=== PATIENT | female | born 1975 | race Caucasian/White ===

== ENCOUNTER 2019-08-11 00:16 | Outpatient (CLI) | payer OTHER, SELFPAY ==
[2019-08-11 18:40] LABS: SARS-CoV-2 RNA PCR Negative
== END 2019-08-11 00:17 | disposition home or self-care (01) ==
LOC: ANHCOVIDDT 00:16
PROVIDERS: Visit Provider Urology
DX: Z01.812 Encounter for preprocedural laboratory examination (principal); Z20.828 Contact with and (suspected) exposure to other viral communicable diseases
CPT/HCPCS: 87635; C9803; U0003

== ENCOUNTER 2019-08-12 09:24 | Outpatient (CLI) | payer OTHER, SELFPAY ==
--- NOTE | 2019-08-12 09:28 | ECG_ITS ---
Measurements Intervals [place] Rate: 78 P: 15 HI: 156 QRS: -2 QRSD: 104 T: -3 QT: 349 QTc: 399 Interpretive Statements SINUS RHYTHM VOLTAGE CRITERIA FOR LVH BORDERLINE R WAVE PROGRESSION, ANTERIOR LEADS BORDERLINE T WAVE ABNORMALITY- INFERIOR LEADS BORDERLINE ECG Electronically Signed On 08-12-2019 10:23:33 CDT by Paul Morillo D.O.
== END 2019-08-12 09:25 | disposition home or self-care (01) ==
LOC: ANHSURGERY 09:28
PROVIDERS: PCP Family Medicine; Visit Provider Urology
DX: Z01.810 Encounter for preprocedural cardiovascular examination (principal); I10 Essential (primary) hypertension
CPT/HCPCS: 93005

== ENCOUNTER 2019-08-14 01:26 | Day surgery (SDC) | payer OTHER, SELFPAY ==
[2019-08-07 16:58] VITALS: BMI 43.4
[2019-08-14 07:19] VITALS: BP 124/82; PULSE 90; RESP 18; TEMP 36.4; O2SAT 100
--- NOTE | 2019-08-14 07:30 | WPDHPUPDATE1 ---
History and Physical Update Update Date/Time: 08/14/19 07:30 History and Physical has been reviewed, including an updated exam of the patient. There are NO changes in the patient's condition. Risks, benefits, and alternatives have been discussed and questions answered. Patient agrees to proceed with procedure.
[2019-08-14] MEDS: LACTATED RINGERS 1,000 ML 30 ML IV CONT (07:52)
--- NOTE | 2019-08-14 09:00 | WPDANESEPPF ---
Anes - Initial Pre Proc Eval Procedure: Operation Date: 08/14/19 09:15 Proposed Procedures p Urethral Sling - Fabiano Kelley MD Date/Time: 08/14/19 09:00 Surgeon: Fabiano Kelley MD Pre Op Diagnosis: Stress Incontinence Patient Data Age: 44 Gender: F Height: 1.6 m Weight: 114.4 kg Last Vital Signs Temp 36.4 C 08/14/19 07:19 Pulse 90 08/14/19 07:19 Resp 18 08/14/19 07:19 BP 124/82 08/14/19 07:19 Pulse Ox 100 08/14/19 07:19 Allergies Allergy/AdvReac Type Severity Reaction Status Date / Time No Known Allergies Allergy Mild Unverified 08/14/19 07:54 Home Medications Medication Instructions Recorded Confirmed Type bupropion HCl 300 mg PO QAM 08/07/19 08/14/19 History lisinopril 20 mg PO DAILY 08/07/19 08/07/19 History tramadol 50 mg PO Q6H PRN #20 tablet 08/14/19 Rx Patient hx anesthesia problems: none Family hx anesthesia problems: none [facility] Past Medical History Medical History (Updated 08/14/19 @ 09:01 by Jakob Woodard MD) Back pain Endometriosis HTN (hypertension) Morbid obesity with BMI of 40.0-44.9, adult Stress incontinence Anes - Eval Final PreProcedure Day of Procedure 08/14/19 09:00 Patient weight: morbidly obese Heart: regular rate and rhythm Lungs: clear to auscultation and normal air movement Airway: Mallampati scale class II Neurological: alert and oriented Last oral intake: >/= 8 hours ASA classification: III Emergent: no Anesthetic plan: proceed Anesthesia type and monitoring: general LMA Informed Consent: The patient's anesthetic plan and its attendant risks and benefits were discussed with the patient/family/POA. Questions were solicited and answers provided to the satisfaction of the patient/family/POA.
[2019-08-14] MEDS: ceFAZolin 2 GM/D5W 50 ML 2 GM/50 ML BAG IVPB (09:26)
[2019-08-14] MEDS: BUPIVACAINE/EPINEPHRINE 0.25% 50 ML VIAL 10 ML INFILTRATE (09:41)
[2019-08-14 09:59] VITALS: BP 145/76; PULSE 90; RESP 20; TEMP 36.4; O2SAT 100
--- NOTE | 2019-08-14 10:03 | PM.PROC ---
Procedure Note - Detailed Date of procedure: 08/14/19 Pre-op diagnosis: Stress Incontinence Stress urinary incontinence Post-op diagnosis: same Procedure performed: Transobturator Mid-urethral sling Cystoscopy Description of procedure: This is a patient with confirmed stress urinary incontinence. She desires correction. She understands the risks of bleeding, infection, damage to the urinary tract, lack of cure of stress incontinence, recurrence of stress incontinence, postoperative voiding dysfunction including incontinence and retention, need for ancillary procedures to loosen remove the sling, postoperative voiding dysfunction including retention and overactive bladder, hip and leg pain, dyspareunia, mesh related complications including exposure and extrusion. She agrees to proceed. She understands it will not help overactive bladder symptoms if present. She was correctly identified and informed consent obtained. She is brought to the operating room. She was given appropriate anesthesia. She was placed in the dorsal lithotomy position. All pressure points were padded. She was given appropriate perioperative antibiotics and a time-out performed. A Manning catheter is placed. I marked out the thigh incisions anesthetize the skin and made those incisions. I anesthetized the anterior vaginal wall over the mid urethra. I made a 1 cm incision. I dissected out laterally taking great care not to injure the urethra or the vaginal wall. Passed the helical trocars 1st on the left and then on the right from the thigh incision towards the vaginal incision. Sling was connected to the trocars and brought out through the thigh incision. I tensioned the sling appropriately. I cut and removed the plastic sheaths. I closed the incision with 2 0 Vicryl. I then performed cystoscopy. There was no surgical artifact or abnormalities inside the bladder. The urethra was normal without surgical artifact. I cut the excess sling material. I closed the incisions with glue. She was awakened and transferred to the PACU in stable condition. Implants: Mid urethral sling Surgeon: Fabiano Kelley MD Drains: No Packing: No Pathology: none sent Complications: No immediate complications Condition: stable Disposition: PACU
[2019-08-14 10:15] VITALS: BP 141/73; PULSE 73; RESP 17; O2SAT 95
[2019-08-14 10:30] VITALS: BP 134/77; PULSE 69; RESP 18; O2SAT 96
[2019-08-14 10:35] VITALS: BP 159/95; PULSE 80; RESP 14
[2019-08-14 11:00] VITALS: BP 148/72; PULSE 77; RESP 16
== END 2019-08-14 11:15 | disposition home or self-care (01) ==
PROVIDERS: Visit Provider Urology
PROC: (CPT 57288; principal; 2019-08-14 09:15)
DX: N39.3 Stress incontinence (female) (male) (principal); I10 Essential (primary) hypertension; E66.01 Morbid (severe) obesity due to excess calories; Z68.41 Body mass index [BMI] 40.0-44.9, adult
CPT/HCPCS: 57288; A9270; C1771; J0690; J2250; J2405; J2704; J3010; J7030; J7120

== ENCOUNTER 2024-10-28 19:14 | Emergency (ER) | payer OTHER, SELFPAY ==
--- NOTE | 2024-10-28 19:15 | ED_ITS ---
HPI - Skin/Abscess/Foreign Bdy General Chief complaint: Skin/Abscess/Foreign Body Stated complaint: Insect Bite Time Seen by Provider: 10/28/24 19:15 Source: patient Mode of arrival: ambulatory Limitations: no limitations History of Present Illness HPI narrative: Zuleima is a 49 year old female patient presenting to the clinic today with c/o a possible spider bite to the left inner thigh x 2 days. She reports thinks it may be an abscess or boil. Has been applying warm compresses to the area. Rates pain 2/10 currently. No fever, chills, or body aches. Related Data Allergies Allergy/AdvReac Type Severity Reaction Status Date / Time morphine Allergy shakiness Verified 10/28/24 19:34 sulfamethoxazole (From Allergy Shakiness Verified 10/28/24 19:34 Bactrim) trimethoprim (From Bactrim) Allergy Shakiness Verified 10/28/24 19:34 Review of Systems Review of Systems: Pertinent positives per HPI. Patient denies any fever, chills, rash, headache, visual changes, dizziness, cough, runny nose, sore throat, shortness of breath, chest pain, palpitations, nausea, vomiting, diarrhea, constipation, abdominal pain, or any urinary issues. [facility] Past Medical History Medical History Morbid obesity with BMI of 40.0-44.9, adult Endometriosis Back pain Stress incontinence HTN (hypertension) Comments At the time of my signature, I reviewed and agree with the nursing past medical, surgical, social, and family history. There is no relevant family history pertinent to the patient complaint. Exam Narrative: General: Well-developed, morbidly obese, in no apparent distress Head: Normocephalic, atraumatic. Cardio: Regular rate and rhythm, s1 and s2 normal, no murmur appreciated. Resp: Clear to auscultation bilaterally, no rhonchi, rales, wheezing or rubs. Integumentary: [place], warm, and dry, 5 x 5 cm indurated abscess to the left medial thigh-tenderness to palpation with fluctuance. Redness measuring approximately 2 cm outside the induration. No drainage, bruised appearance blister center to the abscess Course Course Emergency Course: Portions of this record may have been created with voice recognition software. Level of Care: Express Care Visit Vital Signs Vital signs: Vital Signs Temperature 36.8 C 10/28/24 19:25 Pulse Rate 91 10/28/24 19:25 Respiratory Rate 18 10/28/24 19:25 Blood Pressure 156/94 H 10/28/24 19:25 Pulse Oximetry 100 10/28/24 19:25 Oxygen Delivery Room Air 10/28/24 19:25 Temperature 36.8 C 10/28/24 19:25 Pulse Rate 91 10/28/24 19:25 Respiratory Rate 18 10/28/24 19:25 Blood Pressure 156/94 H 10/28/24 19:25 Pulse Oximetry 100 10/28/24 19:25 Oxygen Delivery Room Air 10/28/24 19:25 Vital signs reviewed Procedures Abscess I/D Left medial thigh: Date of Incision: 10/28/24 Side (if applicable): left Sedation/analgesia: none Local Anesthetic: lidocaine 1% Amount of anesthesia used (mL): 3 Technique: incised with #11 blade Amount of fluid expressed (mL): 3 Irrigation: No Packing used?: plain I&D Results: Pus and Blood Abcess I&D Additional Comments: Verbal consent obtained for incision and drainage. Risk and benefits explained and patient voiced understanding. Area was cleansed with betadine. Area was prepped and draped using sterile technique. 27 gauge needle was then used to instill (3) ml of lidocaine with epi into the wound edges. Patient tolerated well and anesthesia was appropriate. An 11 blade scalpel was then used to make a 0.5cm incision over the abscess. White bloody exudate expressed from cavity. Wound culture obtained and sent to lab. Quarter-inch packing was placed into the wound bed. Patient tolerated procedure fair. MDM - Skin/Abscess/Foreign Bdy MDM Narrative Medical decision making narrative: At the time of visit patient is resting comfortably on the exam table. Patient appears to be nontoxic. c/o a possible spider bite to the left inner thigh x 2 days. She reports thinks it may be an abscess or boil. Has been applying warm compresses to the area. Rates pain 2/10 currently. No fever, chills, or body aches. On exam patient has a 5 x 5 cm indurated abscess to the left medial thigh-tenderness to palpation with fluctuance. Redness measuring approximately 2 cm outside the induration. No drainage, bruised appearance blister center to the abscess. Recommend incision and drainage and patient verbalized understanding and agrees to procedure. Procedures: Incision and drainage procedure performed. Consent was obtained and risk and benefits were reviewed. Approximately 3 mL of bloody white purulent discharge was expressed and wound culture was obtained and sent to the lab. Quarter-inch packing was inserted into the wound. Patient tolerated fair. Sterile dressing was applied. Plan: I suspect patient has abscess to the left medial thigh. Incision and drainage was performed. Wound culture was sent to the lab. Prescription clindamycin was sent to the pharmacy. Supportive measures were discussed with the patient and they voiced understanding discharge instructions and agrees to treatment plan. Return precautions reviewed Differential Diagnosis Differential diagnosis: Likely abscess of skin or subcutaneous tissue, viral exanthem, dermatophytosis, urticaria, herpes zoster, allergic reaction to drug, cellulitis, eczema, insect bites, impetigo and contact dermatitis Discharge Plan Discharge Clinical Impression: Abscess Patient Disposition: Home Condition: Stable Instructions: Antibiotic Form, Abscess (ED), Abscess Incision and Drainage (DC) Additional Instructions: Incision and drainage of your abscess was performed in the clinic today Quarter-inch packing was inserted-leave this in place for 2-3 days to allow for drainage Keep area clean and dry Wash area daily with soap and water-no tub baths Take clindamycin as prescribed Take a daily probiotic-2 hours before or 2 hours after taking with the antibiotic doses May take Tylenol/Motrin as needed for pain Follow-up with your PCP in 2-3 days for wound check For to the emergency room if symptoms worsen-fever not controlled by Tylenol Motrin, increase in pain, increase in swelling, increase in purulent drainage, increased redness, or streaking Patient Language: Dutch Prescriptions: New clindamycin HCl [Cleocin HCl] 300 mg capsule 300 mg PO Q8H 10 Days Qty: 30 0RF Follow-up/Referrals: UNKNOWN,DOCTOR [Non-Staff] - Time of Disposition: 20:02
[2024-10-28 19:25] VITALS: BP 156/94; PULSE 91; RESP 18; TEMP 36.8; O2SAT 100
[2024-10-28] MEDS: LIDOCAINE 1% LOCAL INJ 2 ML AMPUL 4 ML INFILTRATE (19:34)
== END 2024-10-28 20:19 | disposition home or self-care (01) ==
PROVIDERS: Emergency Provider Nurse Practitioner Family
DX: L02.416 Cutaneous abscess of left lower limb (principal); I10 Essential (primary) hypertension; N80.9 Endometriosis, unspecified; E66.01 Morbid (severe) obesity due to excess calories; Z68.41 Body mass index [BMI] 40.0-44.9, adult
CPT/HCPCS: 10061; 99213; G0463; J2003